=== PATIENT | male | born 1945 | race Caucasian/White ===

== ENCOUNTER → 2017-09-14 | Outpatient (CLI) | payer OTHER, BC ==
[~2017-09-14] VITALS: Ht 182.9 cm; Wt 117.6 kg
[~2017-09-14] MED LIST: AMOXICILLIN 50500 MG PO; APAP650 PO; ASPIR 8181 MG PO; CENTRUM SILVER1 EAC2 PO; COREG6.25 MG PO; FISH OIL 1,001000 M2 PO; GLUCOSAMINE HC500 MG PO; INVOKANA300 MG PO; LEVEMIR FL100 UNIT/2 SQ; LIPITOR80 MG PO; LISINOPRIL10 MG PO; METFORMIN HCL500 MG PO; METOPROLOL SUCC25 M1 PO; MOBIC15 MG PO; NEURONTIN 300M300 M2 PO; NOVOLOG FL100 UNIT/M SC; VICTOZA0.6 MG/0.1 SUBQ; VITAMIN B-12500 MCG PO; VITAMIN D3400 UNIT PO; VITAMIN E400 UNIT PO; VITAMINC500 PO
--- NOTE | ~2017-09-14 | HPC ---
[address] [address] PAIN MANAGEMENT CONSULTATION Name: FABIANDK Francisco [id number] Admission: 09/14/17 Attend Phys: Eladio Lobato DO Discharge: Date of : 43 Report #: [id number] THIS REPORT FOR: //name// CC: Eladio Villaseñor DO DATE OF SERVICE: 09/14/2017 REFERRING PHYSICIAN: Alvaro Villaseñor DO CHIEF COMPLAINT: Low back pain, bilateral lower extremity pain with paresthesias. HISTORY OF PRESENT ILLNESS: As you know, the patient is a very pleasant 72-year-old male who has been referred to our service for low back pain, bilateral lower extremity pain with paresthesias. The patient reports chronic pain that has been present for years. He states his pain has progressively worsened. He has undergone surgery in the lumbar region with laminectomies, though his symptoms never really fully improved. He indicates today his pain is sharp, stabbing and constant, describes the pain as exacerbated with just lying down, raising his arms above his head, twisting, and leaning forward to wash dishes, it improves with sitting and medications as well as heat. He indicates he recently saw a neurology who is also sending him for imaging of the cervical and thoracic region due to findings on exam that were concerning in the cervical region. The patient has been referred to our service to discuss treatment options for his back pain, which began 05/03/2009, without inciting injury or trauma. PAST MEDICAL HISTORY: 1. Osteoarthritis. 2. Chronic low back pain with paresthesias. 3. Diabetes mellitus. 4. Dyslipidemia. 5. Hypertension. PAST SURGICAL HISTORY: 1. Laminectomy, L3-L4. 2. Right knee arthroscopy. 3. Coronary artery bypass grafting times 4. SOCIAL HISTORY: The patient denies tobacco, alcohol, IV or illicit drug use. He is retired. He is unaccompanied today. REVIEW OF SYSTEMS: Positive for low back pain, bilateral lower extremity pain and paresthesias, neck pain, upper extremity pain with paresthesias, [address] [address] PAIN MANAGEMENT CONSULTATION Name: DK PERALTA Room #: [facility] [id number] Admission: 09/14/17 Attend Phys: Eladio Lobato DO Discharge: Date of : 44 Report #: [id number] osteoarthritis reducing the capability of ambulating, heat and cold intolerance, bleeding and bruising tendencies, frequent urination, headaches, lightheadedness and dizziness, insomnia, fatigue and weakness, rectal bleeding, constipation interspersed with diarrhea, heart disease requiring coronary artery bypass grafting. PAIN IMPACT SCORE: 39/70 indicating moderate interference of daily activities secondary to pain. ALLERGIES: No known drug allergies. CURRENT MEDICATIONS: Acetaminophen 650 mg twice a day, gabapentin 300 mg twice a day, metoprolol 25 mg once a day, Invokana 300 mg once a day, Victoza 0.6 mg injected daily, vitamin E 400 units per day, cholecalciferol 400 units per day, ascorbic acid 500 mg once a day, cyanocobalamin 500 mcg per day, glucosamine chondroitin 500 mg 3 tabs p.o. b.i.d., omega-3 fish oil 1 tab per day, multivitamin 1 tab per day, amoxicillin 500 mg twice a day, atorvastatin 80 mg per day, aspirin 81 mg per day, insulin sliding scale, and metformin 500 mg once a day. IMAGING: MRI of the lumbar spine obtained 08/19/2017, shows multilevel degenerative changes throughout the lumbar spine, postoperative laminectomy changes noted at L3-L4, posterior ridging and spurring noted at all levels. There is severe disk space narrowing at L4-L5, L3-L4, possible ankylosing of L3 and L4 vertebral bodies. There is noted severe lateral recess stenosis at L3-L4 and severe neural foraminal stenosis on the left at L3-L4. PQRS: The patient has no known osteoarthritis. No rheumatoid arthritis. He is not a fall risk, nor has he had a fall in the last 3 months. He is treated for hypertension. He is not on blood thinners. He is not on opioids, so he is not at risk for opioid addiction. His functional assessment tool was 39/70. PHYSICAL EXAMINATION: VITAL SIGNS: Blood pressure 124/66, pulse is 70, respiratory rate 18 and unlabored, the patient is 98% on room air, height 6 feet tall, weight 259.2 pounds, and BMI calculated 35.1. GENERAL: Well-developed, well-nourished, well-hydrated, exogenously obese 72-year-old male, he appears stated age, placing current pain score at approximately 7/10. HEENT: Normocephalic, atraumatic. Pupils are equal, round, and reactive to light. Extraocular muscles are intact. Sclerae nonicteric without injection. NEUROLOGIC: Cranial nerves 2 through 12 are grossly intact. Speech is fluent. The patient deemed a good historian. LUNGS: Clear, no wheeze, rhonchi or rales. CARDIOVASCULAR: Regular. No appreciable gallop or rub. ABDOMEN: Soft, nontender, nondistended, normoactive bowel sounds. [address] [address] PAIN MANAGEMENT CONSULTATION Name: DK PERALTA Room #: REG CLV[facility] Deleon#: [id number] Admission: 09/14/17 Attend Phys: Eladio Lobato DO Discharge: Date of : 44 Report #: [id number] EXTREMITIES: Show no clubbing, no cyanosis, and no edema. MUSCULOSKELETAL: Seated straight leg raising negative. Supine straight leg raising positive. Rocio's test negative. Modified Gaenslen's positive for axial low back pain. Ankle clonus negative. Babinski is negative. The patient has increased intensity of pain with forward flexion and rotation of the lumbar spine, no change in pain with lateral flexion or extension. Muscle bulk and tone appears equal and symmetrical in lower extremities. Ankle clonus negative. Babinski is negative. ASSESSMENT: 1. Symptomatic lumbar radiculopathy. 2. Spinal stenosis of lumbar spine. 3. Displacement of lumbar intervertebral disk with radiculopathy. 4. Lumbosacral spondylosis with radiculopathy. 5. Neural foraminal stenosis of the lumbar spine. 6. Facet arthropathy of the lumbar spine. 7. Chronic intractable pain. PLAN: 1. The patient returns today in followup visit with what appears to be lumbar radicular symptoms secondary to bilateral lateral stenosis at the L3-L4 level. The patient, as you are aware, has had surgery in the lumbar region with laminectomies at L4 specifically and appears L5, though he does not indicate this as a surgery, imaging does correlate to this finding. We discussed the treatment options available for suspected lumbar radiculopathy based on the MRI findings of August 2017. We discussed the following treatment options as treatment potentials to improve overall pain. 2. The patient was advised treatment options could include physical therapy, stretching exercise, core strengthening and a concerted effort at weight loss. We discussed medication management with escalating doses of neuropathic medication such as the gabapentin he is currently on or addition of other medications such as nortriptyline, amitriptyline, Cymbalta. We discussed epidural injections for which the patient was referred to our clinic, spinal cord stimulator therapy and ultimately surgical options. After reviewing risks and benefits of all proposed treatment options, the patient chose to undergo lumbar epidural injection under fluoroscopic guidance to address lumbar radicular symptoms secondary to lateral stenosis noted at L3-L4. The patient was advised of the risks and benefits of a lumbar epidural injection. These risks include, but are not necessarily limited to bleeding, bruising, infection, worsening of pain, no relief of pain, and also risk of temporary or permanent muscle weakness, temporary or permanent nerve damage, possible paralysis and . The patient states understood and wished to proceed. 3. No medication changes were made at today's visit. The patient to continue current medical therapy [place] [address] PAIN MANAGEMENT CONSULTATION Name: DK PERALTA Room #: REG CLVishal Deleon#: [id number] Admission: 09/14/17 Attend Phys: Eladio Lobato DO Discharge: Date of : 44 Report #: [id number] 4. The patient to return to our clinic in 3 weeks. At that time, we will review efficacy of today's epidural injection and determine if a next in the series of epidural injections might be necessary. 5. We wish to thank the referring physician, Dr. Villaseñor for the opportunity to see this patient in consultation. We will keep you apprised of his response to treatment as we address lumbar radicular symptoms secondary to the findings on the MRI at the L3-L4 level. Again, we wish to thank you for the opportunity to see this patient in consultation. PROCEDURE NOTE DESCRIPTION OF PROCEDURE: L3-L4 lumbar epidural steroid injection under fluoroscopic guidance. This is the first procedure of the first series that the patient is undergoing. After obtaining written consent, the patient was taken back to the fluoroscopy suite, placed in a prone position with pillow under the abdomen to decrease lumbar lordosis. The skin overlying the lumbosacral area was then prepped and draped in aseptic fashion. The L3-L4 vertebral interspace was then identified by AP fluoroscopy. The skin and subcutaneous tissue overlying the target site of injection was anesthetized with 3 mL 1% lidocaine. [id number] 3-1/2-inch Tuohy needle was then advanced under fluoroscopic guidance towards the epidural space using a midline approach. The epidural space was identified using loss of resistance to air technique. After negative aspiration for heme or cerebrospinal fluid, a total of 1 mL of Omnipaque was injected. A lumbar epidurogram was confirmed using both AP and lateral fluoroscopy. After negative aspiration for heme or cerebrospinal fluid, 5 mL of a solution containing 2 mL 40 mg per mL, 80 mg total triamcinolone and 3 mL lidocaine 1% was injected in increments. Contrast spread was noted posterior epidural space. The needle was then retracted approximately half way and needle tract flushed with 1 mL of 1% lidocaine. Needle was then removed. There were no apparent sensory or motor deficits in the lower extremity following the procedure. A sterile bandage was placed over the injection site. The heart rate, pulse, oximetry and blood pressure were continuously monitored after the procedure. There were no apparent complications. The patient tolerated the procedure well and was carefully escorted to the recovery room in stable condition. There were no apparent complications. After meeting discharge criteria, the patient was then discharged home. By: [id number] Eladio Lobato, DO /nt
[2017-09-14 10:24] VITALS: BP 124/66
== END | disposition home or self-care (01) ==
LOC: PAIN 06:58
DX: M51.16 Intervertebral disc disorders with radiculopathy, lumbar region (principal); M47.27 Other spondylosis with radiculopathy, lumbosacral region; M48.061 Spinal stenosis, lumbar region without neurogenic claudication; G89.29 Other chronic pain; Z68.35 Body mass index [BMI] 35.0-35.9, adult; Z98.890 Other specified postprocedural states; Z79.899 Other long term (current) drug therapy; Z79.4 Long term (current) use of insulin; M19.90 Unspecified osteoarthritis, unspecified site; Z95.1 Presence of aortocoronary bypass graft; E11.9 Type 2 diabetes mellitus without complications; Z79.84 Long term (current) use of oral hypoglycemic drugs; E78.5 Hyperlipidemia, unspecified; I10 Essential (primary) hypertension

== ENCOUNTER → 2017-10-20 | Outpatient (CLI) | payer OTHER, BC ==
[~2017-10-20] VITALS: Ht 182.9 cm; Wt 115.7 kg
--- NOTE | ~2017-10-20 | HPC ---
[facility] [place] [address] PAIN MANAGEMENT CONSULTATION Name: DK PERALTA Francisco [facility] [id number] Admission: 10/20/17 Attend Phys: Eladio Lobato DO Discharge: Date of : 44 Report #: [id number] THIS REPORT FOR: //name// CC: Eladio Pearson MD DATE OF SERVICE: 10/20/2017 CHIEF COMPLAINT: Low back pain, bilateral lower extremity pain with paresthesias. HISTORY OF PRESENT ILLNESS: As you know, the patient is a very pleasant 72-year-old male who returns today in followup visit for the next in a series of epidural injections under fluoroscopic guidance. The patient reports improvement with previous epidural injection of 70-80%. He returns today requesting next in a series of epidural injections to build on success of previous intervention. The patient denies any new injury, new trauma or any changes in medical history since our visit of 09/14/2017. ALLERGIES: No known drug allergies. CURRENT MEDICATIONS: Acetaminophen, gabapentin, metoprolol, Invokana, Victoza, vitamin E, cholecalciferol, ascorbic acid, cyanocobalamin, glucosamine chondroitin, omega-3 fish oil, multivitamin, amoxicillin, atorvastatin, aspirin, sliding scale insulin and metformin. SOCIAL HISTORY: The patient denies tobacco, alcohol, IV or illicit drug use. He is unaccompanied at today's visit. PQRS: The patient has osteoarthritis of the low back, knees bilaterally. No rheumatoid arthritis. He is not a fall risk. Has not had fallen in last 3 months. He is treated for hypertension. He is not on blood thinners. He is not on a long-term opioid therapy, is a low risk for opioid addiction. His functional assessment tool is 39/70. PHYSICAL EXAMINATION: VITAL SIGNS: Blood pressure 137/79, pulse is 69, respiratory rate 14 and unlabored. The patient is 97% on room air, height 6 feet tall, weight 255 pounds, BMI calculated 34.6. GENERAL: Well-developed, well-nourished, well-hydrated exogenously obese 72-year-old male appearing stated age, placing current pain score at 8/10. HEENT: Normocephalic, atraumatic. Pupils equal, round, reactive to light. EXTREMITIES: Show no clubbing, no cyanosis, no edema. MUSCULOSKELETAL: Lower extremity strength equal and symmetrical, 5/5, intact to light touch from L1 through S2 dermatomes. Seated straight leg raising [facility] [address] [place] [address] PAIN MANAGEMENT CONSULTATION Name: DK PERALTA Room #: REG [facility]#: [id number] Admission: 10/20/17 Attend Phys: Eladio Lobato DO Discharge: Date of : 44 Report #: [id number] negative. Supine straight leg raising mildly positive. HERI test negative. Modified Gaenslen's positive for axial low back pain. ASSESSMENT: 1. Symptomatic lumbar radiculopathy. 2. Spinal stenosis of lumbar spine. 3. Displacement of lumbar intervertebral disk with radiculopathy. 4. Lumbosacral spondylosis with radiculopathy. 5. Neural foraminal stenosis of the lumbar spine. 6. Facet arthropathy of the lumbar spine. 7. Chronic intractable pain. PLAN: 1. The patient returns today in followup visit to undergo next in the series of epidural injections. He received improvement with his last epidural injection, returning today to undergo next in the series. He has been advised the risks and benefits of the procedure, states he understood and wished to proceed. The patient states that if he does not receive good and prolonged benefit with this injection, he would consider possible surgical option with his referring physician, Dr. Johnathan Pearson. 2. No medication changes were made at today's visit. The patient to continue current medical therapy as previously prescribed. 3. We will see the patient back in followup visit on an as-needed basis for the possible third in the series of epidural injections. PROCEDURE NOTE DESCRIPTION OF PROCEDURE: Lumbar epidural steroid injection under fluoroscopic guidance. This is the second procedure of the first series that the patient is undergoing. After obtaining written consent, the patient was taken back to the fluoroscopy suite, placed in a prone position with pillow under the abdomen to decrease lumbar lordosis. The skin overlying the lumbosacral area was then prepped and draped in aseptic fashion. The lumbar vertebral interspace was then identified by AP fluoroscopy. The skin and subcutaneous tissue overlying the target site of injection was anesthetized with 3 mL 1% lidocaine. A 20-guage 3-1/2 inch Tuohy needle was then advanced under fluoroscopic guidance towards the epidural space using a paramedian approach. The epidural space was identified using loss of resistance to air technique. After negative aspiration for heme or cerebrospinal fluid, a total of 1 mL of Omnipaque was injected. A lumbar epidurogram was confirmed using both AP and lateral fluoroscopy. After negative aspiration for heme or cerebrospinal fluid, 5 mL of solution containing 2 mL 40 mg per mL 80 mg total triamcinolone, 3 mL of lidocaine 1% was injected [address] [address] PAIN MANAGEMENT CONSULTATION Name: DK PERALTA Room #: REG JOSESITO Deleon#: [id number] Admission: 10/20/17 Attend Phys: Eladio Lobato DO Discharge: Date of : 44 Report #: [id number] in increments. Contrast spread was noted posterior epidural space. The needle was then retracted approximately half way and needle tract flushed with 1 mL of 1% lidocaine. Needle was then removed. There were no apparent sensory or motor deficits in the lower extremity following the procedure. A sterile bandage was placed over the injection site. The heart rate, pulse, oximetry and blood pressure were continuously monitored after the procedure. There were no apparent complications. The patient tolerated the procedure well and was carefully escorted to the recovery room in stable condition. There were no apparent complications. After meeting discharge criteria, the patient was then discharged home. <ELECTRONICALLY SIGNED> By: Eladio Lobato DO 10/26/17 [id number] Eladio Lobato DO /nt
[2017-10-20 10:31] VITALS: BP 137/79
== END | disposition home or self-care (01) ==
LOC: PAIN 07:29
DX: M51.16 Intervertebral disc disorders with radiculopathy, lumbar region (principal); M48.061 Spinal stenosis, lumbar region without neurogenic claudication; M47.27 Other spondylosis with radiculopathy, lumbosacral region; M46.96 Unspecified inflammatory spondylopathy, lumbar region; G89.29 Other chronic pain; I10 Essential (primary) hypertension; M17.0 Bilateral primary osteoarthritis of knee; Z79.82 Long term (current) use of aspirin; Z79.4 Long term (current) use of insulin; Z98.890 Other specified postprocedural states; Z79.899 Other long term (current) drug therapy

== ENCOUNTER → 2018-03-08 | Outpatient (CLI) | payer OTHER, BC ==
[~2018-03-08] VITALS: Ht 182.9 cm; Wt 122.8 kg
--- NOTE | ~2018-03-08 | HPC ---
[facility] [address] [place] [address] PAIN MANAGEMENT CONSULTATION Name: DK PERALTA [facility] [id number] Admission: 03/08/18 Attend Phys: Eladio Lobato DO Discharge: Date of : 44 Report #: [id number] THIS REPORT FOR: //name// CC: Eladio Pearson MD DATE OF SERVICE: 03/08/2018 CHIEF COMPLAINT: Low back pain, bilateral lower extremity pain with paresthesias. HISTORY OF PRESENT ILLNESS: As you know, the patient is a very pleasant 72-year-old male referred to our service for low back pain, bilateral lower extremity pain and paresthesias. As you are aware, the patient suffers from symptomatic lumbar radiculopathy secondary to progressively worsening spinal stenosis of the lumbar spine. His spinal stenosis is multifactorial due to our displacement of lumbar intervertebral disk and lumbosacral spondylosis. The patient was last seen in our clinic 09/14/2017 underwent an epidural injection under fluoroscopic guidance with good and prolonged benefit. He returns reporting 100% improvement in overall pain lasting for nearly 4 months. He returns today with pain level 6/10, states pain is exacerbated with standing, sitting, twisting, bending and repositioning, improves with medications, heat, cold compresses, recliners and epidural injections. He returns to undergo next in the series of epidural injections. He denies new injury, new trauma or any changes in medical history since our last visit. ALLERGIES: NO KNOWN DRUG ALLERGIES. CURRENT MEDICATIONS: Metformin, insulin, aspirin, atorvastatin, amoxicillin, multivitamin, docusate sodium, glucosamine, cyanocobalamin, ascorbic acid, cholecalciferol, vitamin E, Victoza, Invokana, metoprolol, gabapentin, and acetaminophen. SOCIAL HISTORY: The patient denies tobacco, alcohol, IV or illicit drug use. He is retired. He is accompanied by his present in room today. PQRS: The patient has osteoarthritis of bilateral hands. No rheumatoid arthritis. He is placing pain intensity 6/10. He is not a fall risk. He has not had a fall in the last 3 months. He is not on blood thinners. He is not treated for hypertension. He is treated for dyslipidemia. He has not been on opioid. He has a low risk for opioid addiction. He is placing pain impact score 39/70, moderate. PHYSICAL EXAMINATION: VITAL SIGNS: Blood pressure 136/59, pulse 69, respiratory rate 18 and [facility] [address] [place] [address] PAIN MANAGEMENT CONSULTATION Name: DK PERALTA OTIS Room #: REG CLI [facility].#: [id number] Admission: 03/08/18 Attend Phys: Eladio Lobato DO Discharge: Date of : 43 Report #: [id number] unlabored. The patient is 95% on room air, height 6 feet tall, weight 270.8 pounds, BMI calculated 36.7. GENERAL: Well-developed, well-nourished, well-hydrated, morbidly obese 72-year-old male appearing stated age, placing current pain score 6/10. HEENT: Normocephalic, atraumatic. Pupils equal, round, reactive to light. EXTREMITIES: Show no clubbing, no cyanosis, no edema. MUSCULOSKELETAL: Seated straight leg raising negative. Supine straight leg raising is positive on the left greater than right. Rocio's test negative. Modified Gaenslen's positive for axial low back pain. Ankle clonus is negative. Babinski is negative. ASSESSMENT: 1. Symptomatic lumbar radiculopathy. 2. Spinal stenosis of lumbar spine. 3. Displacement of lumbar intervertebral disk with radiculopathy. 4. Lumbosacral spondylosis with radiculopathy. 5. Facet arthropathy of the lumbar spine. 6. Neural foraminal stenosis of lumbar spine. 7. Chronic intractable pain. PLAN: 1. The patient returns today in followup visit having noted excellent benefit with previous epidural injection reporting 100% improvement in overall pain lasting for nearly 4 months. He has had a slow and progressive return of symptoms without inciting injury or trauma. He returns today requesting to undergo epidural injection under fluoroscopic guidance to address recurrent lumbar radicular pain. The patient has been advised risks and benefits, states understood and wished to proceed. 2. No medication changes made at today's visit. The patient will continue current medical therapy as previously prescribed. 3. We will see the patient back in followup visit on an as needed basis for the next in the series of epidural injections. PROCEDURE NOTE: DESCRIPTION OF PROCEDURE: L5-S1 left parasagittal epidural steroid injection under fluoroscopic guidance. This is the third procedure of the first series that the patient is undergoing. After obtaining written consent, the patient was taken back to the fluoroscopy suite, placed in a prone position with pillow under the abdomen to decrease lumbar lordosis. The skin overlying the lumbosacral area was then prepped and draped in aseptic fashion. The L5-S1 vertebral interspace was then identified by AP fluoroscopy. The skin and subcutaneous tissue overlying the target site of injection was anesthetized with 3 mL 1% lidocaine. [address] [address] PAIN MANAGEMENT CONSULTATION Name: DK PERALTA Room #: REG JOSESITO Deleon#: [id number] Admission: 03/08/18 Attend Phys: Eladio Lobato DO Discharge: Date of : 43 Report #: [id number] A 20-gauge 3-1/2 inch Tuohy needle was then advanced under fluoroscopic guidance towards the epidural space using a left parasagittal approach. The epidural space was identified using loss of resistance to air technique. After negative aspiration for heme or cerebrospinal fluid, a total of 0.5 mL of Omnipaque was injected. A lumbar epidurogram was confirmed using both AP and lateral fluoroscopy. After negative aspiration for heme or cerebrospinal fluid, 5 mL of a solution containing 2 mL 40 mg per mL, 80 mg total triamcinolone, 3 mL lidocaine 1% was injected in increments. Contrast spread was noted posterior epidural space. The needle was then retracted approximately half way and needle tract flushed with 1 mL of 1% lidocaine. Needle was then removed. There were no apparent sensory or motor deficits in the lower extremity following the procedure. A sterile bandage was placed over the injection site. The heart rate, pulse, oximetry and blood pressure were continuously monitored after the procedure. There were no apparent complications. The patient tolerated the procedure well and was carefully escorted to the recovery room in stable condition. There were no apparent complications. After meeting discharge criteria, the patient was then discharged home. By: [id number] Eladio Lobato DO /nt
[2018-03-08 12:52] VITALS: BP 136/59
== END | disposition home or self-care (01) ==
LOC: PAIN 07:04
DX: M51.16 Intervertebral disc disorders with radiculopathy, lumbar region (principal); M48.061 Spinal stenosis, lumbar region without neurogenic claudication; M47.27 Other spondylosis with radiculopathy, lumbosacral region; M12.88 Other specific arthropathies, not elsewhere classified, other specified site; M99.73 Connective tissue and disc stenosis of intervertebral foramina of lumbar region; G89.29 Other chronic pain; I10 Essential (primary) hypertension; E66.01 Morbid (severe) obesity due to excess calories; Z79.84 Long term (current) use of oral hypoglycemic drugs; Z79.82 Long term (current) use of aspirin; Z79.4 Long term (current) use of insulin; Z79.899 Other long term (current) drug therapy; Z68.36 Body mass index [BMI] 36.0-36.9, adult

== ENCOUNTER → 2018-06-07 | Outpatient (CLI) | payer OTHER, BC ==
[~2018-06-07] VITALS: Ht 182.9 cm; Wt 123.9 kg
[2018-06-07 08:17] VITALS: BP 150/87
--- NOTE | 2018-06-07 08:29 | NUR ---
Pain Clinic Assessment: 1. History of Osteoarthritis: HANDS History of Rheumatoid Arthritis: Not Applicable 2. Height: 6 ft. 0 in. 182.9 cm. Weight: 273.2 lb. oz. 123.923 kg. Patient's BMI: 37.0 3. Vital Signs: BP: 150/87 Pulse: 76 Resp: 18 Temp: 02 Sat: 98 ECG Mon: 4. Pain Intensity: 5 5. Fall Risk: Dizziness: Y Needs help standing or walking: N Fallen in the last 3 months: N Fall risk comments: FELL WEDNESDAY, LOST BALANCE FELL ON SIDE AND ARM USES CANE 6. Patient on Blood Thinner: None 7. History of Hypertension: N 8. Opioid Therapy greater than 6 weeks: N Opiate Contract Signed: 9. Risk Assessment Tool Provided: low risk 10. Functional Assessment Tool: 39 11. Recreational Drug Use: Never Drug Type: Tobacco Use: Never Smoker Tobacco Type: Amount or Packs/day: How Many Years: Alcohol Use: No Frequency: Quant:
--- NOTE | 2018-06-08 10:54 | HPC ---
[facility] [address] [place] [address] PAIN MANAGEMENT CONSULTATION Name: DK PERALTA OTIS Room #: REG [facility].#: [id number] Admission: 06/07/18 Attend Phys: Eladio Lobato DO Discharge: Date of : 43 Report #: [id number] THIS REPORT FOR: //name// CC: Eladio Diez MD DATE OF SERVICE: 06/07/2018 CHIEF COMPLAINT: Low back pain, bilateral extremity pain with paresthesias. HISTORY OF PRESENT ILLNESS: As you know, the patient is a very pleasant 73-year-old male, referred to our service for low back pain, bilateral extremity pain with paresthesias. As you are aware, the patient suffers from lumbar radiculopathy secondary to progressively worsening spinal stenosis. He returns today in followup visit having noted excellent benefit with previous epidural injection. He reports 100% improvement in overall pain lasting for nearly 3 months. Unfortunately, his symptoms have begun to return to now level of 5/10. He describes the pain as stabbing, aching, intermittent numbness and tingling, exacerbated with walking and standing, improves with medications, heat and epidural injections. He returns today in followup visit requesting next in the series of epidural injections. He denies any new injury or trauma. ALLERGIES: No known drug allergies. CURRENT MEDICATIONS: Insulin, aspirin, atorvastatin, multivitamin, docusate, omega 3, fish oil, glucosamine chondroitin, cyanocobalamin, ascorbic acid, cholecalciferol, vitamin E, Victoza, Invokana, metoprolol, gabapentin, Tylenol Arthritis, metformin. SOCIAL HISTORY: The patient denies tobacco, alcohol, IV or illicit drug use. He is retired. He is unaccompanied today. 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 No rheumatoid arthritis. He is placing current pain score at 5/10. He is not a fall risk, has not had a fall in the last 3 months, though he does use a cane periodically for stabilization. He is not on blood thinners. He is not treated for hypertension. He is not on chronic opioids. He has a low opioid addiction potential. His pain impact score is 39/70, moderate interference of daily activities secondary to pain. PHYSICAL EXAMINATION: VITAL SIGNS: Blood pressure 150/87, pulse 76, respiratory rate 18 and unlabored. The patient is 98% on room air, height 6 feet tall, and weight 273.2 pounds, BMI calculated 37.0. [facility] [address] [place] [address] PAIN MANAGEMENT CONSULTATION Name: DK PERALTA Room #: REG [facility].#: [id number] Admission: 06/07/18 Attend Phys: Eladio Lobato DO Discharge: Date of : 44 Report #: [id number] GENERAL: Well-developed, well-nourished, well-hydrated exogenously obese 73-year-old male appearing stated age, placing current pain score at 5/10. HEENT: Normocephalic, atraumatic. Pupils equal, round, reactive to light. EXTREMITIES: Show no clubbing, no cyanosis, and no edema. MUSCULOSKELETAL: Today seated straight leg raising is negative. Supine straight leg raising remains positive, mainly on the left. Rocio's test negative. Modified Gaenslen's positive for axial low back pain. Lumbar provocation testing including extension, rotation, and lateral flexion, all intensify axial back pain. No radiation of symptoms. ASSESSMENT: 1. Symptomatic lumbar radiculopathy. 2. Spinal stenosis of lumbar spine. 3. Displacement of lumbar intervertebral disk with radiculopathy. 4. Lumbosacral spondylosis with radiculopathy. 5. Facet arthropathy of the lumbar spine. 6. Neural foraminal stenosis of lumbar spine. 7. Chronic intractable pain. PLAN: 1. The patient returns today in followup visit requesting to undergo a lumbar epidural injection under fluoroscopic guidance. As indicated in our history of present illness, the patient reported 100% improvement in overall pain with previous epidural injection. This lasted for nearly 3 months. Unfortunately, the patient's symptoms have begun to return. He returns to undergo next in the series of epidural injections. He has been advised of risks and benefits, states he understood and wished to proceed. 2. No medication changes made at today's visit. The patient will continue current medical therapy as previously prescribed. 3. We will see the patient back in followup visit on an as needed basis for the possible next in the series of lumbar epidural injections. PROCEDURE NOTE DESCRIPTION OF PROCEDURE: L5-S1 left paramedian epidural steroid injection under fluoroscopic guidance. This is the 1st procedure of the 2nd series that the patient is undergoing. After obtaining written consent, the patient was taken back to the fluoroscopy suite, placed in a prone position with pillow under the abdomen to decrease lumbar lordosis. The skin overlying the lumbosacral area was then prepped and draped in aseptic fashion. The L5-S1 vertebral interspace was then identified by AP fluoroscopy. The skin and subcutaneous tissue overlying the target site of injection was anesthetized with 3 mL 1% lidocaine. [address] [address] PAIN MANAGEMENT CONSULTATION Name: DK PERALTA Room #: REG CLI Pancho#: [id number] Admission: 06/07/18 Attend Phys: Eladio Lobato DO Discharge: Date of : 44 Report #: [id number] A 20-gauge, 3.5 inch Tuohy needle was then advanced under fluoroscopic guidance towards the epidural space using a left paramedian approach. The epidural space was identified using loss of resistance to air technique. After negative aspiration for heme or cerebrospinal fluid, a total of 1 mL of Omnipaque was injected. A lumbar epidurogram was confirmed using both AP and lateral fluoroscopy. After negative aspiration for heme or cerebrospinal fluid, 5 mL of a solution containing 2 mL, 40 mg/mL, 80 mg total triamcinolone, 3 mL lidocaine 1% was injected in increments. Contrast spread was noted at posterior epidural space. The needle was then retracted approximately half way and needle tract flushed with 1 mL of 1% lidocaine. Needle was then removed. There were no apparent sensory or motor deficits in the lower extremity following the procedure. A sterile bandage was placed over the injection site. The heart rate, pulse, oximetry and blood pressure were continuously monitored after the procedure. There were no apparent complications. The patient tolerated the procedure well and was carefully escorted to the recovery room in stable condition. There were no apparent complications. After meeting discharge criteria, the patient was then discharged home. <ELECTRONICALLY SIGNED> By: Eladio Lobato DO 06/08/18 1054 [id number] Eladio Lobato DO /nt
== END | disposition home or self-care (01) ==
LOC: PAIN 06:44
DX: M51.16 Intervertebral disc disorders with radiculopathy, lumbar region (principal); M47.27 Other spondylosis with radiculopathy, lumbosacral region; M48.061 Spinal stenosis, lumbar region without neurogenic claudication; M47.26 Other spondylosis with radiculopathy, lumbar region; G89.29 Other chronic pain; M19.041 Primary osteoarthritis, right hand; M19.042 Primary osteoarthritis, left hand; Z79.4 Long term (current) use of insulin; Z79.82 Long term (current) use of aspirin; Z79.899 Other long term (current) drug therapy

== ENCOUNTER → 2018-09-13 | Outpatient (CLI) | payer OTHER, BC ==
[~2018-09-13] VITALS: Ht 182.9 cm; Wt 124.3 kg
--- NOTE | ~2018-09-13 | HPC ---
[facility] [address] [place] [address] PAIN MANAGEMENT CONSULTATION Name: DK PERALTA Room #: REG [facility]..#: [id number] Admission: 09/13/18 ������������������ Attend Phys: Eladio Lobato DO Discharge: ������������������ Date of : 43 Report #: [id number] THIS REPORT FOR: //name// CC: Eladio Diez MD DATE OF SERVICE: 09/13/2018 CHIEF COMPLAINT: Low back pain, bilateral lower extremity pain with paresthesias, left greater than right. HISTORY OF PRESENT ILLNESS: As you know, the patient is a very pleasant 73-year-old male who returns today in followup visit indicating good benefit with previous lumbar epidural injection. Unfortunately, his symptoms have begun to return. He is placing pain score at 8/10. He states his pain is stabbing and aching in sensation; exacerbated with walking and standing; improves with heat, medications, sitting and previous epidural injection. The patient reports 100% improvement in overall pain lasting for nearly 2-1/4 months with the previous injection. He returns today in followup visit, denying any new injury or trauma that may have led to symptom recurrence. He has returned requesting next in the series of lumbar epidural injections in hopes of further improvement in pain. ALLERGIES: No known drug allergies. CURRENT MEDICATIONS: Metformin 500 mg twice a day, insulin 100 units subcutaneous as directed, Levemir 100 units subQ at bedtime, aspirin 81 mg per day, atorvastatin 80 mg per daily, multivitamin 1 tab per day, cyanocobalamin 500 mcg 4 tabs per day, ascorbic acid 500 mg per day, cholecalciferol 400 units once a day, metoprolol 25 mg once a day, gabapentin 300 mg twice a day, Tylenol 650 mg twice a day, meloxicam 15 mg once a day. SOCIAL HISTORY: The patient denies tobacco, alcohol, IV or illicit drug use. He is retired, retired years ago, accompanied by his who is present in room today. IMAGING: No new imaging available. PQRS: The patient has known osteoarthritic changes in the bilateral hands, lumbar spine. No rheumatoid arthritis. He is placing pain intensity today around 8/10. He is not a fall risk, has not had a fall in the last 3 months. He does have a cane when his balance is off, but he is not using it today. He is not on blood thinners. He is treated for hypertension. He is not on any opioids. He is a low risk for opioid addiction. He is placing pain impact [address] [address] PAIN MANAGEMENT CONSULTATION Name: DK PERALTA [id number] Admission: 09/13/18 ������������������ Attend Phys: Eladio Lobato DO Discharge: ������������������ Date of : 43 Report #: [id number] score 39/70, moderate interference of daily activities secondary to pain. PHYSICAL EXAMINATION: VITAL SIGNS: Blood pressure 141/75, pulse 64, respiratory rate 18 and unlabored. The patient is 98% on room air, height 6 feet tall, weight 274 pounds, BMI calculated 37.2. GENERAL: Well-developed, well-nourished, exogenously obese 73-year-old male appearing stated age, pain is rated around 8/10. HEENT: Normocephalic, atraumatic. Pupils equal, round, reactive to light. Extraocular muscles are intact. Sclerae nonicteric without injection. NEUROLOGIC: Cranial nerves 2-12 grossly intact. Speech is fluent. The patient deemed an excellent historian. EXTREMITIES: Show no clubbing, no cyanosis, and no edema. MUSCULOSKELETAL: Seated straight leg raising negative. Supine straight leg raising positive on the left. Rocio's test negative. Modified Gaenslen's positive for axial low back pain. Ankle clonus negative. Babinski is negative. Gait is slightly antalgic favoring left lower extremity over right. Stance slightly forward flexed lumbar spine. ASSESSMENT: 1. Symptomatic lumbar radiculopathy. 2. Spinal stenosis of lumbar spine. 3. Displacement of lumbar intervertebral disk with radiculopathy. 4. Lumbosacral spondylosis with radiculopathy. 5. Neural foraminal stenosis of the lumbar spine. 6. Facet arthropathy of the lumbar spine. 7. Chronic intractable pain. PLAN: 1. The patient returns today in followup visit having 100% improvement in overall pain lasting for nearly 2-1/4 months. He returns today in followup visit to undergo next in the series of lumbar epidural injections. He is very pleased with response to this last injection, hopeful to see similar improvement today. He has been advised risks and benefits of the procedure, states he understood and wished to proceed. 2. No medication changes made at today's visit. We recommend the patient to continue current medical therapy as previously prescribed. 3. We will see the patient back in followup visit on an as needed basis for possible next in the series of lumbar epidural injections. PROCEDURE NOTE DESCRIPTION OF PROCEDURE: L5-S1 left paramedian epidural steroid injection under fluoroscopic guidance. This is the second procedure of the second series that the patient is undergoing. [address] [address] PAIN MANAGEMENT CONSULTATION Name: DK PERALTA Room #: REG CLI [facility]#: [id number] Admission: 09/13/18 ������������������ Attend Phys: Eladio Lobato DO Discharge: ������������������ Date of : 43 Report #: [id number] After obtaining written consent, the patient was taken back to the fluoroscopy suite, placed in a prone position with pillow under the abdomen to decrease lumbar lordosis. The skin overlying the lumbosacral area was then prepped and draped in aseptic fashion. The L5-S1 vertebral interspace was then identified by AP fluoroscopy. The skin and subcutaneous tissue overlying the target site of injection was anesthetized with 3 mL 1% lidocaine. A 20-gauge, 3-1/2-inch Tuohy needle was then advanced under fluoroscopic guidance towards the epidural space using a left paramedian approach. The epidural space was identified using loss of resistance to air technique. After negative aspiration for heme or cerebrospinal fluid, a total of 1 mL of Omnipaque was injected. A lumbar epidurogram was confirmed using both AP and lateral fluoroscopy. After negative aspiration for heme or cerebrospinal fluid, 5 mL of a solution containing 2 mL 40 mg per mL, 80 mg total triamcinolone and 3 mL of lidocaine 1% was injected in increments. Contrast spread was noted in posterior epidural space. The needle was then retracted approximately half way and needle tract flushed with 1 mL of 1% lidocaine. Needle was then removed. There were no apparent sensory or motor deficits in the lower extremity following the procedure. A sterile bandage was placed over the injection site. The heart rate, pulse, oximetry and blood pressure were continuously monitored after the procedure. There were no apparent complications. The patient tolerated the procedure well and was carefully escorted to the recovery room in stable condition. There were no apparent complications. After meeting discharge criteria, the patient was then discharged home. ��������������������������������������������� ���������������������������������������� By: ��������������������������������������������� 1235 2201 Eladio Lobato DO /nt
[2018-09-13 10:19] VITALS: BP 141/75
--- NOTE | 2018-09-13 10:21 | NUR ---
Pain Clinic Assessment: 1. History of Osteoarthritis: HANDS History of Rheumatoid Arthritis: Not Applicable 2. Height: 6 ft. 0 in. 182.9 cm. Weight: 274.0 lb. oz. 124.286 kg. Patient's BMI: 37.2 3. Vital Signs: BP: 141/75 Pulse: 64 Resp: 18 Temp: 02 Sat: 98 ECG Mon: 4. Pain Intensity: 8 5. Fall Risk: Dizziness: Y Needs help standing or walking: N Fallen in the last 3 months: N Fall risk comments: FELL WEDNESDAY, LOST BALANCE FELL ON SIDE AND ARM USES CANE 6. Patient on Blood Thinner: None 7. History of Hypertension: N 8. Opioid Therapy greater than 6 weeks: N Opiate Contract Signed: 9. Risk Assessment Tool Provided: low risk-0 10. Functional Assessment Tool: 39/ 11. Recreational Drug Use: Never Drug Type: Tobacco Use: Never Smoker Tobacco Type: Amount or Packs/day: How Many Years: Alcohol Use: No Frequency: Quant:
== END | disposition home or self-care (01) ==
LOC: PAIN 06:46
DX: M51.16 Intervertebral disc disorders with radiculopathy, lumbar region (principal); M48.061 Spinal stenosis, lumbar region without neurogenic claudication; M47.27 Other spondylosis with radiculopathy, lumbosacral region; M47.26 Other spondylosis with radiculopathy, lumbar region; G89.29 Other chronic pain; I10 Essential (primary) hypertension; Z79.899 Other long term (current) drug therapy; Z79.82 Long term (current) use of aspirin; Z98.890 Other specified postprocedural states

== ENCOUNTER → 2019-10-24 | Outpatient (CLI) | payer OTHER, BC ==
[~2019-10-24] VITALS: Ht 182.9 cm; Wt 117.6 kg
[~2019-10-24] MED LIST changes: -APAP650 PO; +TYLENOL EXTRA500 MG PO
[2019-10-24 11:27] VITALS: BP 145/66
--- NOTE | 2019-10-24 11:40 | NUR ---
Pain Clinic Assessment: 1. History of Osteoarthritis: HANDS History of Rheumatoid Arthritis: DENIES 2. Height: 6 ft. 0 in. 182.9 cm. Weight: 259.2 lb. oz. 117.573 kg. Patient's BMI: 35.1 3. Vital Signs: BP: 145/66 Pulse: 80 Resp: 20 Temp: 02 Sat: 97 ECG Mon: 4. Pain Intensity: 7-8 5. Fall Risk: Dizziness: N Needs help standing or walking: N Fallen in the last 3 months: N Fall risk comments: FELL WEDNESDAY, LOST BALANCE FELL ON SIDE AND ARM USES CANE 6. Patient on Blood Thinner: None 7. History of Hypertension: N 8. Opioid Therapy greater than 6 weeks: N Opiate Contract Signed: 9. Risk Assessment Tool Provided: low risk-0 10. Functional Assessment Tool: 39 11. Recreational Drug Use: Never Drug Type: Tobacco Use: Never Smoker Tobacco Type: Amount or Packs/day: How Many Years: Alcohol Use: No Frequency: Quant:
--- NOTE | 2019-10-25 11:38 | P ---
[facility] [place] [address] PROCEDURE REPORT Name: DK PERALTA OTIS Room #: REG [facility].#: [id number] Admission: 10/24/19 Attend Phys: Eladio Lobato DO Discharge: Date of : 43 Report #: [id number] THIS REPORT FOR: cc: Alvaro Villaseñor John E. DO Johnson, James E. DO ~ DATE OF SERVICE: 10/24/2019 DESCRIPTION OF PROCEDURE: L5-S1 left paramedian epidural steroid injection under fluoroscopic guidance. This is the first procedure of the third series that the patient is undergoing. After obtaining written consent, the patient was taken back to the fluoroscopy suite, placed in a prone position with pillow under the abdomen to decrease lumbar lordosis. The skin overlying the lumbosacral area was then prepped and draped in aseptic fashion. The L5-S1 vertebral interspace was then identified by AP fluoroscopy. The skin and subcutaneous tissue overlying the target site of injection was anesthetized with 3 mL 1% lidocaine. A 20-gauge, 3-1/2 inch Tuohy needle was then advanced under fluoroscopic guidance towards the epidural space using a left paramedian approach. The epidural space was identified using loss of resistance to air technique. After negative aspiration for heme or cerebrospinal fluid, a total of 1 mL of Omnipaque was injected. A lumbar epidurogram was confirmed using both AP and lateral fluoroscopy. After negative aspiration for heme or cerebrospinal fluid, 5 mL of a solution containing 2 mL of 40 mg per mL, 80 mg total of triamcinolone along with 3 mL of lidocaine 1% was injected in increments. Contrast spread was noted in posterior epidural space. The needle was then retracted approximately half way and needle tract flushed with 1 mL of 1% lidocaine. Needle was then removed. There were no apparent sensory or motor deficits in the lower extremity following the procedure. A sterile bandage was placed over the injection site. The heart rate, pulse, oximetry and blood pressure were continuously monitored after the procedure. There were no apparent complications. The patient tolerated the procedure well and was carefully escorted to the recovery room in stable condition. There were no apparent complications. After meeting discharge criteria, the patient was then discharged home. <ELECTRONICALLY SIGNED> By: Eladio Lobato DO 10/25/19 1138 1349 1415 Eladio Lobato DO /nt
--- NOTE | 2019-10-25 11:38 | HPC ---
[facility] [place] [address] PAIN MANAGEMENT CONSULTATION Name: DK PERALTA Room #: REG [facility]..#: [id number] Admission: 10/24/19 Attend Phys: Eladio Lobato DO Discharge: Date of : 43 Report #: [id number] THIS REPORT FOR: cc: Alvaro Villaseñor John E. DO Johnson, James E. DO ~ DATE OF SERVICE: 10/24/2019 CHIEF COMPLAINT: Low back pain, bilateral lower extremity pain and paresthesias, left greater than right. HISTORY OF PRESENT ILLNESS: As you know, the patient is a very pleasant 74-year-old male who has returned today in followup visit requesting to undergo next in the series of epidural injections under fluoroscopic guidance. The patient reports pain score of about 7-8/10. He has denied any new injury or trauma that may have led to symptom reoccurrence. Previous epidural injection provided on 09/13/2018 gave 100% improvement in overall pain with a slow and progressive return of symptoms. He now returns today in followup visit to undergo next in the series of epidural injections in hopes of building on success of previous intervention. ALLERGIES: No known drug allergies. CURRENT MEDICATIONS: Metformin, insulin, aspirin, atorvastatin, multivitamin, cyanocobalamin, ascorbic acid, cholecalciferol, vitamin E, metoprolol, acetaminophen. SOCIAL HISTORY: The patient denies tobacco, alcohol, IV or illicit drug use. He is retired, retired years ago. He is unaccompanied today. IMAGING: No new imaging available. PQRS: The patient has osteoarthritic changes of the bilateral shoulders, lumbar spine. No rheumatoid arthritis. He is placing his current pain score 7-8/10. He is not a fall risk nor had a fall in the last 3 months. He is not on blood thinners. He is not treated for hypertension based on his report. He is not on chronic opioids, has a low opioid addiction potential based on our assessment tool. Pain impact is 39/70, moderate interference of daily activities secondary to pain. PHYSICAL EXAMINATION: VITAL SIGNS: Blood pressure 145/66, pulse 80, respiratory rate 20 and unlabored. The patient is 97% on room air. Height 6 feet tall, weight 259.2 pounds, BMI calculated 35.1. GENERAL: Well-developed, well-nourished, well-hydrated, exogenously obese [facility] [address] [place] [address] PAIN MANAGEMENT CONSULTATION Name: DK PERALTA OTIS Room #: REG [facility] [id number] Admission: 10/24/19 Attend Phys: Eladio Lobato DO Discharge: Date of : 44 Report #: [id number] 74-year-old male, appearing his stated age. He is placing current pain score at 7-8/10. HEENT: Normocephalic, atraumatic. Pupils are equal, round, and reactive. NEUROLOGIC: Speech is fluent. The patient deemed a good historian. EXTREMITIES: Show no clubbing, no cyanosis, and no edema. MUSCULOSKELETAL: Lower extremity strength is symmetrical 5/5. Slight giveaway strength noted on the left with hip flexion causing increased pain. Muscle bulk is equal and symmetrical in comparing left lower extremity to right. Seated straight leg raising mildly positive left. Supine straight leg raising positive on the left at approximately 50-degree angle. Babinski's is negative. Gait is antalgic favoring left lower extremity over right. Lumbar provocation testing is met with increased pain, mainly on the left side with rotation and lateral flexion. ASSESSMENT: 1. Symptomatic lumbar radiculopathy. 2. Spinal stenosis of the lumbar spine. 3. Displacement of lumbar intervertebral disk with radiculopathy. 4. Lumbosacral spondylosis with radiculopathy. 5. Neural foraminal stenosis of the lumbar spine. 6. Facet arthropathy of the lumbar spine. 7. Chronic intractable pain. PLAN: 1. The patient returns today in followup visit requesting to undergo next in the series of epidural injections under fluoroscopic guidance. He has noted excellent benefit with previous epidural injection reporting 100% improvement in overall pain. The patient unfortunately has had a slow and progressive return of symptoms, but this has been a total of 1 year. He returns today in followup visit for the next in the series of epidural injections in hopes of improving overall pain. The patient has been advised risks and benefits of a lumbar epidural injection. These risks include but are not necessarily limited to bleeding, bruising, infection, worsening pain, no relief of pain, also risk of temporary or permanent muscle weakness, temporary or permanent nerve damage, possible paralysis and . The patient states understood and wished to proceed. 2. No medication changes made at today's visit. The patient will continue current medical therapy as previously prescribed. 3. We will see the patient back in followup visit on an as needed basis for possible next in the series of lumbar epidural injections. We are hopeful he will see good and prolonged benefit with today's epidural. <ELECTRONICALLY SIGNED> By: Eladio Lobato DO 10/25/19 1138 1349 1409 Eladio Lobato DO /nt
== END | disposition home or self-care (01) ==
LOC: PAIN 06:51
PROVIDERS: ATTEND Anesthesiology Pain Medicine
DX: M51.16 Intervertebral disc disorders with radiculopathy, lumbar region (principal); M47.27 Other spondylosis with radiculopathy, lumbosacral region; M47.26 Other spondylosis with radiculopathy, lumbar region; M48.02 Spinal stenosis, cervical region; G89.29 Other chronic pain; M19.90 Unspecified osteoarthritis, unspecified site; Z98.890 Other specified postprocedural states; Z79.899 Other long term (current) drug therapy

== ENCOUNTER → 2020-02-27 | Outpatient (CLI) | payer OTHER, BC ==
[~2020-02-27] VITALS: Ht 182.9 cm; Wt 118.1 kg
[2020-02-27 10:47] VITALS: BP 133/66
--- NOTE | 2020-02-27 11:11 | NUR ---
Pain Clinic Assessment: 1. History of Osteoarthritis: HANDS History of Rheumatoid Arthritis: DENIES 2. Height: 6 ft. 0 in. 182.9 cm. Weight: 260.4 lb. oz. 118.117 kg. Patient's BMI: 35.3 3. Vital Signs: BP: 133/66 Pulse: 72 Resp: 16 Temp: 02 Sat: 98 ECG Mon: 4. Pain Intensity: 7-8 5. Fall Risk: Dizziness: Y Needs help standing or walking: Y Fallen in the last 3 months: N Fall risk comments: FELL WEDNESDAY, LOST BALANCE FELL ON SIDE AND ARM USES CANE 6. Patient on Blood Thinner: None 7. History of Hypertension: N 8. Opioid Therapy greater than 6 weeks: N Opiate Contract Signed: 9. Risk Assessment Tool Provided: low risk-0 10. Functional Assessment Tool: 39/70 11. Recreational Drug Use: Never Drug Type: Tobacco Use: Never Smoker Tobacco Type: Amount or Packs/day: How Many Years: Alcohol Use: No Frequency: Quant:
--- NOTE | 2020-02-27 16:14 | HPC ---
[facility] [address] [place] [address] PAIN MANAGEMENT CONSULTATION Name: DK PERALTA [id number] Admission: 02/27/20 Attend Phys: Eladio Lobato DO Discharge: Date of : 43 Report #: [id number] CC: Eladio Diez MD DATE OF SERVICE: 02/27/2020 CHIEF COMPLAINT: Low back pain, bilateral lower extremity pain with paresthesias. HISTORY OF PRESENT ILLNESS: As you know, the patient is a very pleasant 74-year-old male who returns today in followup visit with pain levels reported at 7-8/10. He states he was doing well until just recently where he has had a slow and progressive return of symptoms. He states his pain got so intense that he actually fell on Wednesday, landing on his side and arm. He is now utilizing a cane for ambulation. He returns today in followup visit to undergo next in the series of epidural injections. He reports improvement with the previous epidural injection of 80%, lasting for nearly 2 months. He returns today in followup visit for next in the series of epidural injections in hopes of building on success of previous intervention. ALLERGIES: No known drug allergies. CURRENT MEDICATIONS: Metformin, insulin, aspirin, atorvastatin, multivitamin, cyanocobalamin, ascorbic acid, cholecalciferol, vitamin E, metoprolol, acetaminophen. SOCIAL HISTORY: The patient denies tobacco, alcohol, IV or illicit drug use. He is retired, retired years ago. He is unaccompanied today. IMAGING: No new imaging available. PQRS: The patient has known arthritic changes of the bilateral shoulders, lumbar spine. No rheumatoid arthritis. He is placing his current pain score at 7/10-8/10. He is not typically a fall risk, but did have a fall on Wednesday. He has not had any other falls in the last 3 months. He is not on blood thinners, not treated for hypertension. He is not on chronic opioids, has a low opioid addiction potential based on our assessment tool. Pain impact 39/70, moderate interference of daily activities secondary to pain. PHYSICAL EXAMINATION: VITAL SIGNS: Blood pressure 133/66, pulse 72, respiratory rate 16 and unlabored. The patient is 98% on room air, height 6 feet tall, weight 260.4 pounds, BMI calculated 35.3. GENERAL: Well-developed, well-nourished, well-hydrated 74-year-old male, appears stated age, pain is rated anywhere from 7-8/10. HEENT: Normocephalic, atraumatic. Extraocular muscles are intact. Speech is fluent. He is deemed an excellent historian. EXTREMITIES: Show no clubbing, no cyanosis, and no appreciable edema. MUSCULOSKELETAL: Seated straight leg raising negative. Supine straight leg raising positive on the left. Rocio's test is negative. Modified Gaenslen's positive for axial low back pain. Ankle clonus negative. Babinski is negative. Gait is mildly antalgic. He is using a cane for ambulation favoring the left lower extremity. ASSESSMENT: 1. Symptomatic lumbar radiculopathy. 2. Spinal stenosis of lumbar spine. 3. Displacement of lumbar intervertebral disk with radiculopathy. 4. Lumbosacral spondylosis with radiculopathy. 5. Neural foraminal stenosis of lumbar spine. 6. Facet arthropathy of the lumbar spine. 7. Chronic intractable pain. PLAN: 1. The patient returns today in followup visit requesting to undergo next in the series of lumbar epidural injections under fluoroscopic guidance. He has noted excellent benefit with previous epidural injection reporting 80% improvement in overall pain. Unfortunately, his symptoms have begun to return. He returns today in followup visit for the next in the series of epidural injections. He has been advised of the risks and benefits of the procedure, states understood and wished to proceed. 2. No medication changes made at today's visit. The patient will continue current medical therapy as prior prescribed. 3. We will see the patient back in followup visit on an as needed basis for the possible next in the series of epidural injections. We are pleased that the patient has done well with previous epidural injections, hopeful to see similar improvement today. We will see him back on an as needed basis. PROCEDURE NOTE DESCRIPTION OF PROCEDURE: L5-S1 left parasagittal epidural steroid injection under fluoroscopic guidance. After obtaining written consent, the patient was taken back to fluoroscopy suite, placed in prone position with pillow under abdomen to decrease lumbar lordosis. Skin overlying lumbosacral area then prepped and draped in aseptic fashion. The L5-S1 vertebral interspace identified by AP fluoroscopy. Skin and subcutaneous tissue overlying target site injection anesthetized with 3 mL of 1% lidocaine. A 20-gauge 3-1/2 inch Tuohy needle advanced under fluoroscopic guidance towards the epidural space using a left parasagittal approach. Epidural space identified using loss of resistance to air technique. After negative aspiration for heme or cerebrospinal fluid, 1 mL of Omnipaque injected. A lumbar epidurogram was confirmed using both AP and lateral fluoroscopy. After negative aspiration for heme or cerebrospinal fluid, 5 mL of a solution containing 2 mL 40 mg per mL, 80 mg total triamcinolone along with 3 mL of lidocaine 1% injected slowly. Needle retracted detention, flushed with 1 mL of 1% lidocaine and then removed. Sterile bandage placed over injection site. No new motor deficits present in the lower extremities following procedure. The patient tolerated procedure well, carefully escorted to recovery room in stable condition. No apparent complications. After meeting discharge criteria, the patient discharged home. <ELECTRONICALLY SIGNED> By: Eladio Lobato DO 02/27/20 1614 1303 [id number] Eladio Lobato DO /nt
== END | disposition home or self-care (01) ==
LOC: PAIN 06:59
PROVIDERS: ATTEND Anesthesiology Pain Medicine
DX: M51.16 Intervertebral disc disorders with radiculopathy, lumbar region (principal); M47.27 Other spondylosis with radiculopathy, lumbosacral region; M47.26 Other spondylosis with radiculopathy, lumbar region; M48.061 Spinal stenosis, lumbar region without neurogenic claudication; G89.29 Other chronic pain; Z98.890 Other specified postprocedural states; Z79.899 Other long term (current) drug therapy

== ENCOUNTER → 2020-09-24 | Outpatient (CLI) | payer OTHER, BC ==
[~2020-09-24] VITALS: Ht 182.9 cm; Wt 115.7 kg
[2020-09-24 09:45] VITALS: BP 130/58
--- NOTE | 2020-09-24 09:49 | NUR ---
Pain Clinic Assessment: 1. History of Osteoarthritis: HANDS History of Rheumatoid Arthritis: DENIES 2. Height: 6 ft. in. 182.9 cm. Weight: 255.0 lb. oz. 115.668 kg. Patient's BMI: 34.6 3. Vital Signs: BP: 130/58 Pulse: 84 Resp: 16 Temp: 02 Sat: 97 ECG Mon: 4. Pain Intensity: 7-8 5. Fall Risk: Dizziness: N Needs help standing or walking: N Fallen in the last 3 months: N Fall risk comments: FELL WEDNESDAY, LOST BALANCE FELL ON SIDE AND ARM USES CANE 6. Patient on Blood Thinner: None 7. History of Hypertension: N 8. Opioid Therapy greater than 6 weeks: N Opiate Contract Signed: 9. Risk Assessment Tool Provided: low risk-0 10. Functional Assessment Tool: 39/70 11. Recreational Drug Use: Never Drug Type: Tobacco Use: Never Smoker Tobacco Type: Amount or Packs/day: How Many Years: Alcohol Use: No Frequency: Quant:
--- NOTE | 2020-09-25 08:22 | HPC ---
[facility] [address] [place] [address] PAIN MANAGEMENT CONSULTATION Name: DK PERALTA Room #: REG [facility] Pancho#: [id number] Admission: 09/24/20 Attend Phys: Eladio Lobato DO Discharge: Date of : 43 Report #: [id number] THIS REPORT FOR: cc: Alvaro Villaseñor John E. DO Johnson, James E. DO DOC #: [id number] cc: DO Eladio Monsivais DO DATE OF SERVICE: 09/24/2020 REFERRING PHYSICIAN: Alvaro Villaseñor M.D. CHIEF COMPLAINT: Low back pain, bilateral lower extremity pain with paresthesias. HISTORY OF PRESENT ILLNESS: As you know, the patient is a very pleasant 75-year-old male who was last seen in our clinic on 02/27/2020 where he underwent a lumbar epidural injection under fluoroscopic guidance, which gave near 100% improvement in overall pain, lasting until just recently where he has had a slow and progressive return of symptoms. The patient was able to travel to the [facility] in his recreational vehicle and go about all activities of vacation and living without difficulty. He returned to the [place] area where he has begun to experience slow and progressive return of symptoms. He denies injury or trauma. He returns today requesting a lumbar epidural injection under fluoroscopic guidance to address his recurrent 7-8/10 pain. He is very pleased with response to previous epidural injections and hopeful to see similar improvement with today's procedure. ALLERGIES: No known drug allergies. CURRENT MEDICATIONS: Metformin, insulin, aspirin, atorvastatin, multivitamin, cyanocobalamin, ascorbic acid, cholecalciferol, vitamin E, and metoprolol. SOCIAL HISTORY: The patient denies tobacco, alcohol, IV or illicit drug use. He is retired, retired years ago, unaccompanied today. IMAGING: No new imaging available. PQRS: The patient has known arthritic changes of bilateral shoulders and lumbar spine. No rheumatoid arthritis, placing current pain score anywhere from 7-8/10. He is a fall risk and has had a fall in last 3 months, apparently lost balance on Wednesday of last week and fell while doing activities. He is not utilizing a cane when he is having to walk long distances and has not had any further falls. He is not on blood thinners. He is treated for hypertension. He is not on chronic opioids, has a low opioid addiction potential. Pain impact [facility] [address] [place] [address] PAIN MANAGEMENT CONSULTATION Name: DK PERALTA Room #: REG [facility] [place].#: [id number] Admission: 09/24/20 Attend Phys: Eladio Lobato DO Discharge: Date of : 43 Report #: [id number] is 39 of 70, moderate interference of daily activities secondary to pain. PHYSICAL EXAMINATION: VITAL SIGNS: Blood pressure 130/58, pulse 84, respiratory rate 16 and unlabored. The patient is 98% on room air. Height 6 feet tall, weight 255 pounds, BMI calculated 34.6. GENERAL: Well-developed, well-nourished, well-hydrated 75-year-old male, appearing stated age. Pain is rated today around 7-8/10. HEENT: Normocephalic, atraumatic. Pupils are round and responsive. He is wearing a mask in compliance with COVID-19 regulations. EXTREMITIES: Show no clubbing, no cyanosis. No appreciable edema. MUSCULOSKELETAL: Muscle bulk and tone equal and symmetrical in lower extremities. He is intact to light touch from L1 through S2 dermatomes. Seated straight leg raising is negative. Supine straight leg raising is positive, mainly on the left, negative right. Fabere's test is negative. Modified Gaenslen's positive for axial low back pain. Gait is antalgic. ASSESSMENT: 1. Symptomatic lumbar radiculopathy. 2. Spinal stenosis of lumbar spine. 3. Displacement of lumbar intervertebral disk with radiculopathy. 4. Lumbosacral spondylosis with radiculopathy. 5. Neural foraminal stenosis of the lumbar spine. 6. Facet arthropathy of lumbar spine. 7. Chronic intractable pain. PLAN: 1. The patient returns today in followup visit having noted near 100% improvement in overall pain with the epidural injection provided in 02/2020. He had been very pleased with response to this treatment and was able to travel and see the [facility] in his recreational vehicle, but upon returning to [place], his pain began to return. He is now placing pain anywhere from 7-8/10, returning today requesting a lumbar epidural injection under fluoroscopic guidance. The patient has been advised the risks and benefits of the procedure, states understood and wished to proceed. 2. No medication changes made at today's visit. We recommend the patient to continue with current medical management as prior prescribed. 3. We plan to see the patient back in followup visit on an as needed basis for the next in the series of lumbar epidural injections. We are hopeful the patient will once again see good and prolonged benefit with the epidural injection provided today. DESCRIPTION OF PROCEDURE: L5-S1 left parasagittal epidural steroid injection under fluoroscopic guidance. After obtaining written consent, the patient was taken back to fluoroscopy [address] [address] PAIN MANAGEMENT CONSULTATION Name: DK PERALTA Room #: REG [facility]#: [id number] Admission: 09/24/20 Attend Phys: Eladio Lobato DO Discharge: Date of : 43 Report #: [id number] suite, placed in prone position with pillow under abdomen to decrease lumbar lordosis. Skin overlying lumbosacral area prepped and draped in aseptic fashion. The L5-S1 vertebral interspace identified by AP fluoroscopy. Skin and subcutaneous tissue overlying target site injection anesthetized with 3 mL 1% lidocaine. A 20 gauge 3-1/2 inch Tuohy needle advanced under fluoroscopic guidance towards the epidural space using a left parasagittal approach. Epidural space identified using loss of resistance to air technique. After negative aspiration for heme or cerebrospinal fluid, 1 mL of Omnipaque injected. Lumbar epidurogram confirmed using both AP and lateral fluoroscopy. After negative aspiration for heme or cerebrospinal fluid, 5 mL solution containing 2 mL 40 mg per mL 80 mg total triamcinolone along with 3 mL of lidocaine, 1% injected slowly. Needle retracted care home, flushed with 1 mL of 1% lidocaine and then removed. Sterile bandage placed over injection site. No new motor deficits present in lower extremity following procedure. The patient tolerated the procedure well, carefully escorted to recovery room in stable condition. No apparent complications. After meeting discharge criteria, the patient discharged home. Eladio Lobato DO JEJ/DHI <ELECTRONICALLY SIGNED> By: Eladio Lobato DO 09/25/20 0822 [id number] [id number] Eladio Lobato DO /nt
== END | disposition home or self-care (01) ==
LOC: PAIN 07:15
PROVIDERS: ATTEND Anesthesiology Pain Medicine
DX: M51.16 Intervertebral disc disorders with radiculopathy, lumbar region (principal); M48.061 Spinal stenosis, lumbar region without neurogenic claudication; M47.27 Other spondylosis with radiculopathy, lumbosacral region; M47.26 Other spondylosis with radiculopathy, lumbar region; G89.29 Other chronic pain; I10 Essential (primary) hypertension; M19.90 Unspecified osteoarthritis, unspecified site; Z98.890 Other specified postprocedural states; Z79.899 Other long term (current) drug therapy